=== PATIENT | female | born 1980 | race Caucasian/White ===

== ENCOUNTER 2020-10-27 22:55 | Emergency (ER) | payer MEDICAID ==
--- NOTE | 2020-10-27 23:34 | EDM.PDOC ---
ED HPI GENERAL MEDICAL PROBLEM - General Chief Complaint: Drug or Alcohol Abuse Stated Complaint: PASSED OUT Time Seen by Provider: 10/27/20 23:30 Source of Information: Reports: Patient, EMS History Limitations: Reports: No Limitations - History of Present Illness INITIAL COMMENTS - FREE TEXT/NARRATIVE: 40 year old female with PMH of anxiety [facility] after being arrested for DUI. She "passed out" at [facility], woke to a sternal rub, when EMS arrived patient was awake. Patient denies any ETOH or drug use. EMS states that she tested positive for ETOH, patient states she drank an energy drink out of her "alcohol" cup. Reports chronic lower back, kidney, chest pain, SOB, and nausea. Patient states she had a syncopal episode last week witnessed by her SO. On arrival, patient is having intermittent entire body twitches. Denies any increased SOB, CP, nausea. Had a negative COVID test last week. Onset: Today Location: Reports: Chest, Back Quality: Reports: Sharp Severity: Mild Improves with: Reports: None Worsens with: Reports: Movement Chest Pain Score (Numeric/FACES): 5 Flank Pain Score (Numeric/FACES): 6 ED ROS GENERAL - Review of Systems Review Of Systems: See Below Constitutional: Reports: No Symptoms HEENT: Reports: No Symptoms Respiratory: Reports: No Symptoms Cardiovascular: Reports: Chest Pain Endocrine: Reports: No Symptoms GI/Abdominal: Reports: No Symptoms : Reports: No Symptoms Musculoskeletal: Reports: No Symptoms Skin: Reports: No Symptoms Neurological: Reports: No Symptoms Psychiatric: Reports: Anxiety Hematologic/Lymphatic: Reports: No Symptoms Immunologic: Reports: No Symptoms ED EXAM, GENERAL - Physical Exam Exam: See Below Exam Limited By: No Limitations General Appearance: Alert, Anxious Eye Exam: Bilateral Eye: Normal Inspection, Nystagmus, PERRL Ears: Normal External Exam, Hearing Grossly Normal Ear Exam: Bilateral Ear: Auricle Normal Nose: Normal Inspection, Normal Mucosa, No Blood Throat/Mouth: Normal Inspection, Normal Lips, Normal Gums, Normal Oropharynx, Normal Voice, No Airway Compromise Head: Atraumatic Neck: Normal Inspection, Non-Tender, Full Range of Motion Respiratory/Chest: No Respiratory Distress, Lungs Clear, Normal Breath Sounds, No Accessory Muscle Use Cardiovascular: Normal Peripheral Pulses, Regular Rate, Rhythm, No Edema, No JVD, No Murmur Peripheral Pulses: 3+: Carotid (L), Carotid (R), Radial (L), Radial (R), Brennan salis Pedis (L), Dorsalis Pedis (R) GI/Abdominal: Normal Bowel Sounds, Soft, Non-Tender Back Exam: Normal Inspection, Full Range of Motion Extremities: Normal Inspection, Normal Range of Motion, Non-Tender, No Pedal Edema, Normal Capillary Refill Neurological: Alert, Oriented, CN II-XII Intact, Normal Cognition, Normal Gait, Normal Reflexes, No Motor/Sensory Deficits Psychiatric: Normal Affect, Anxious Skin Exam: Warm, Dry, Intact Lymphatic: No Adenopathy Course - Vital Signs Last Recorded V/S: Last Vital Signs Temp 98.7 F 10/27/20 23:17 Pulse 68 10/28/20 00:30 Resp 13 10/28/20 00:30 BP 112/67 10/28/20 00:30 Pulse Ox 98 10/28/20 00:30 - Orders/Labs/Meds Orders: Active Orders 24 hr Category Date Time Status EKG Documentation Completion [RC] ASDIRECTED Care 10/27/20 23:30 Active CXR [Chest 1V Frontal] [CR] Stat Exams 10/27/20 23:31 Taken Sodium Chloride 0.9% [Normal Saline] 1,000 ml Med 10/28/20 00:22 Active IV .BOLUS Medication Orders Sodium Chloride (Normal Saline) 1,000 mls @ 1,000 mls/hr IV .BOLUS ONE Stop: 10/28/20 01:21 Last Admin: 10/28/20 00:25 Dose: 1,000 mls/hr Documented by: RUSH Labs: Laboratory Tests 10/27/20 10/27/20 10/28/20 Range/Units 23:45 23:45 00:05 WBC 7.5 (4.0-11.0) K/uL RBC 4.88 (3.80-5.80) M/uL Hgb 10.2 L (11.5-16.5) g/dL Hct 33.5 L (37.0-47.0) % MCV 69 L (76-96) fL MCH 20.9 L (27.0-32.0) pg MCHC 30.4 L (31.0-35.0) g/dL RDW 18.4 H (11.0-16.0) % Plt Count 438 (150-500) K/uL MPV 9.6 (6.0-10.0) fL Neut % (Auto) 54.2 (45.0-70.0) % Lymph % (Auto) 35.2 (20.0-40.0) % Upton % (Auto) 9.4 (3.0-10.0) % Eos % (Auto) 0.9 L (1.0-5.0) % Baso % (Auto) 0.3 (0.0-0.5) % Neut # (Auto) 4.05 (2.00-7.50) K/uL Lymph # (Auto) 2.63 (1.50-4.00) K/uL Upton # (Auto) 0.70 (0.20-0.80) K/uL Eos # (Auto) 0.07 (0.04-0.40) K/uL Baso # (Auto) 0.02 (0.02-0.10) K/uL Sodium 142 (136-145) mmol/L Potassium 3.7 (3.5-5.1) mmol/L Chloride 105 (98-107) mmol/L Carbon Dioxide 24.6 (21.0-32.0) mmol/L Anion Gap 16.1 H (5.0-15.0) mmol/L BUN 7 L (8-26) mg/dL Creatinine 0.69 (0.55-1.02) mg/dL Est Cr Clr Drug Dosing 91.45 mL/min Estimated GFR (MDRD) > 60 (>60) MLS/MIN BUN/Creatinine Ratio 10.1 (6-25) Glucose 92 (74-100) mg/dL Calcium 8.2 L (8.5-10.1) mg/dL Total Bilirubin 0.3 (0.0-1.0) mg/dL AST 25 (15-37) U/L ALT 38 (12-78) U/L Alkaline Phosphatase 68 (46-116) U/L Troponin I < 0.017 (0.000-0.060) ng/mL Total Protein 7.8 (6.4-8.2) g/dL Albumin 3.8 (3.4-5.0) g/dL Globulin 4.0 (2.2-4.2) g/dL Albumin/Globulin Ratio 0.9 (0.8-2.0) Urine Opiates Screen Negative (NEGATIVE) Ur Oxycodone Screen Negative (NEGATIVE) Urine Methadone Screen Negative (NEGATIVE) Ur Barbiturates Screen Negative (NEGATIVE) Ur Tricyclics Screen Negative (NEGATIVE) Ur Phencyclidine Scrn Negative (NEGATIVE) Ur Amphetamine Screen Negative (NEGATIVE) U Methamphetamines Scrn Negative (NEGATIVE) Urine MDMA Screen Negative (NEGATIVE) U Benzodiazepines Scrn Negative (NEGATIVE) U Cocaine Metab Screen Negative (NEGATIVE) U Marijuana (THC) Screen Negative (NEGATIVE) Ethyl Alcohol (<3.0) mg/dL 10/28/20 Range/Units 00:05 WBC (4.0-11.0) K/uL RBC (3.80-5.80) M/uL Hgb (11.5-16.5) g/dL Hct (37.0-47.0) % MCV (76-96) fL MCH (27.0-32.0) pg MCHC (31.0-35.0) g/dL RDW (11.0-16.0) % Plt Count (150-500) K/uL MPV (6.0-10.0) fL Neut % (Auto) (45.0-70.0) % Lymph % (Auto) (20.0-40.0) % Upton % (Auto) (3.0-10.0) % Eos % (Auto) (1.0-5.0) % Baso % (Auto) (0.0-0.5) % Neut # (Auto) (2.00-7.50) K/uL Lymph # (Auto) (1.50-4.00) K/uL Upton # (Auto) (0.20-0.80) K/uL Eos # (Auto) (0.04-0.40) K/uL Baso # (Auto) (0.02-0.10) K/uL Sodium (136-145) mmol/L Potassium (3.5-5.1) mmol/L Chloride (98-107) mmol/L Carbon Dioxide (21.0-32.0) mmol/L Anion Gap (5.0-15.0) mmol/L BUN (8-26) mg/dL Creatinine (0.55-1.02) mg/dL Est Cr Clr Drug Dosing mL/min Estimated GFR (MDRD) (>60) MLS/MIN BUN/Creatinine Ratio (6-25) Glucose (74-100) mg/dL Calcium (8.5-10.1) mg/dL Total Bilirubin (0.0-1.0) mg/dL AST (15-37) U/L ALT (12-78) U/L Alkaline Phosphatase (46-116) U/L Troponin I (0.000-0.060) ng/mL Total Protein (6.4-8.2) g/dL Albumin (3.4-5.0) g/dL Globulin (2.2-4.2) g/dL Albumin/Globulin Ratio (0.8-2.0) Urine Opiates Screen (NEGATIVE) Ur Oxycodone Screen (NEGATIVE) Urine Methadone Screen (NEGATIVE) Ur Barbiturates Screen (NEGATIVE) Ur Tricyclics Screen (NEGATIVE) Ur Phencyclidine Scrn (NEGATIVE) Ur Amphetamine Screen (NEGATIVE) U Methamphetamines Scrn (NEGATIVE) Urine MDMA Screen (NEGATIVE) U Benzodiazepines Scrn (NEGATIVE) U Cocaine Metab Screen (NEGATIVE) U Marijuana (THC) Screen (NEGATIVE) Ethyl Alcohol 103.0 H (<3.0) mg/dL Meds: Medications Generic Name Dose Route Start Last Admin Trade Name Freq PRN Reason Stop Dose Admin Sodium Chloride 1,000 mls @ 1,000 mls/hr 10/28/20 00:22 10/28/20 00:25 Normal Saline IV 10/28/20 01:21 1,000 mls/hr .BOLUS ONE Administration Discontinued Medications Generic Name Dose Route Start Last Admin Trade Name Freq PRN Reason Stop Dose Admin Ketorolac Tromethamine 15 mg 10/28/20 00:23 10/28/20 00:31 Ketorolac 60 Mg/2 Ml Sdv IVPUSH 10/28/20 00:24 15 mg ONETIME ONE Administration Ketorolac Tromethamine Confirm 10/28/20 00:39 10/28/20 00:32 Ketorolac 30 Mg/Ml Sdv Administered 10/28/20 00:40 Not Given Dose 30 mg .ROUTE .STK-MED ONE Departure - Departure Time of Disposition: 00:57 Disposition: Home, Self-Care 01 Condition: Good Clinical Impression: Alcohol abuse, Chronic chest pain, Chronic pain of both knees Chronic low back pain Qualifiers: Back pain laterality: bilateral Sciatica presence: unspecified whether sciatica present Qualified Code(s): M54.5 - Low back pain; G89.29 - Other chronic pain - Discharge Information *PRESCRIPTION DRUG MONITORING PROGRAM REVIEWED*: Not Applicable *COPY OF PRESCRIPTION DRUG MONITORING REPORT IN PATIENT TERRI: Not Applicable Instructions: Chronic Knee Pain, Adult, [id number], Alcohol Intoxication, [id number], Nonspecific Chest Pain, Adult, [id number] Referrals: PCP,None [Primary Care Provider] - Forms: ED Department Discharge Additional Instructions: Your EKG was normal as well as your troponin. Please establish a primary MD to continue care of your chronic pain. Return to ED for any increased or new concerning symptoms. Sepsis Event Note (ED) - Focused Exam Vital Signs: Vital Signs Temp Pulse Resp BP Pulse Ox 10/28/20 00:30 68 13 112/67 98 10/28/20 00:01 76 13 110/63 97 10/27/20 23:17 98.7 F 86 14 116/74 98 - My Orders Last 24 Hours: My Active Orders 10/27/20 23:30 EKG Documentation Completion [RC] ASDIRECTED 10/27/20 23:31 CXR [Chest 1V Frontal] [CR] Stat 10/28/20 00:22 Sodium Chloride 0.9% [Normal Saline] 1,000 ml IV .BOLUS - Assessment/Plan Last 24 Hours: My Active Orders 10/27/20 23:30 EKG Documentation Completion [RC] ASDIRECTED 10/27/20 23:31 CXR [Chest 1V Frontal] [CR] Stat 10/28/20 00:22 Sodium Chloride 0.9% [Normal Saline] 1,000 ml IV .BOLUS Assessment:: No neuro deficits on exam. Patient's CP is left sided, pinpoint and reproducable with palpation, denies any radiation of the pain. Patient does not have any body twitching when engaged in conversation. DDX: [place], PE, pneumonia. Troponin is negative and patient states she has had this pain for years. EKG shows NSR. PERC negative. CXR negative. 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 She agrees to finding primary care to address her chronic issues. Verbalized understanding of DC instructions. All questions were answered prior to DC.
--- NOTE | 2020-10-27 23:35 | PCM.EKG ---
#1 Interpretation EKG Date: 10/27/20 Time: 23:24 Rhythm: NSR Rate (Beats/Min): 71 P-Wave: Present QRS: Normal ST-T: Normal QT: Normal Comparison: NA - No Prior EKG
[2020-10-28] MEDS: Sodium Chloride 0.9% 1,000 ML IV ONE (00:25)
[2020-10-28] MEDS: Ketorolac 60 MG/2 ML SDV IVPUSH ONE (00:31)
[2020-10-28] MEDS: Ketorolac 30 MG/ML SDV ONE (00:32)
--- NOTE | 2020-10-28 11:59 | CR ---
CLINICAL DATA: Chest pain. AP CHEST, 27 OCTOBER 2020: No priors. The heart size is normal. The lungs are clear. No pneumothorax. No pleural effusions. No evidence of acute intrathoracic disease. Job: [id number] MTDD
== END 2020-10-28 01:10 | disposition home or self-care (01) ==
LOC: LB.ED 22:55
DX: R07.9 Chest pain, unspecified (principal); M25.562 Pain in left knee; M25.561 Pain in right knee; M54.5 Low back pain; G89.29 Other chronic pain; F10.10 Alcohol abuse, uncomplicated; Y90.5 Blood alcohol level of 100-119 mg/100 ml
CPT/HCPCS: 36415; 71045; 80053; 80307; 84484; 85025; 93005; 96374; 99283; 99285-25; A0425; A0429; J1885; J7030